=== PATIENT | female | born 1985 | race Caucasian/White ===

== ENCOUNTER 2018-10-02 03:05 | Emergency (ER) | payer SELFPAY ==
[~2018-10-02] VITALS: Ht 167.6 cm; Wt 59.1 kg
[2018-10-02 03:07] VITALS: Ht 167.6 cm; Wt 59.1 kg
[2018-10-02] MEDS ORDERED: ADDERALL 20 MG20 M1 PO (03:08)
[2018-10-02] MEDS ORDERED: TYLENOL W/CODEI1 TAB PO (04:26)
[2018-10-02 05:47] VITALS: BP 132/94
== END 2018-10-02 05:45 | disposition home or self-care (01) ==
LOC: D.ER 03:05
DX: S43.005A Unspecified dislocation of left shoulder joint, initial encounter (principal); X58.XXXA Exposure to other specified factors, initial encounter; Y93.89 Activity, other specified; Y92.019 Unspecified place in single-family (private) house as the place of occurrence of the external cause; F90.9 Attention-deficit hyperactivity disorder, unspecified type